=== PATIENT | male | born 1970 | race Caucasian/White ===

== ENCOUNTER 2023-08-04 11:22 | Inpatient (IN) | payer OTHER ==
[2023-08-04 12:23] VITALS: BMI 25.8
[2023-08-04] MEDS ORDERED: IBUPROFEN 400 MG TABLET (FP) PO PRN (13:22)
[2023-08-04] MEDS ORDERED: chlordiazePOXIDE HCL 25 MG CAPSULE PO PRN (13:22)
[2023-08-04] MEDS ORDERED: DICYCLOMINE HCL 10 MG CAPSULE PO PRN (13:22)
[2023-08-04] MEDS ORDERED: MAG HYDROX/AL HYDROX/SIMETH 30 ML UNIT-DOSE CUP PO PRN (13:22)
[2023-08-04] MEDS ORDERED: LOPERAMIDE HCL 2 MG CAPSULE PO PRN (13:22)
[2023-08-04] MEDS ORDERED: METHOCARBAMOL 500 MG TABLET PO PRN (13:22)
[2023-08-04] MEDS ORDERED: MAGNESIUM HYDROX 2400MG/30ML ORAL SUSPENSION 30 ML CUP PO PRN (13:22)
[2023-08-04] MEDS ORDERED: BENZONATATE 200 MG CAPSULE PO PRN (13:22)
[2023-08-04] MEDS ORDERED: NALOXONE HCL 0.4 MG/ML VIAL IM PRN (13:22)
[2023-08-04] MEDS ORDERED: IBUPROFEN 600 MG TABLET (FP) PO PRN (13:22)
[2023-08-04] MEDS ORDERED: POLYETHYLENE GLYCOL (HEALTHYLAX) 3350 17 GM PACKET PO PRN (13:22)
[2023-08-04] MEDS ORDERED: ONDANSETRON *ODT* 4 MG TABLET SL PRN (13:22)
[2023-08-04] MEDS ORDERED: NALOXONE (NARCAN) HCL 4 MG/0.1 ML SPRAY NS PRN (13:22)
[2023-08-04] MEDS ORDERED: BENZOCAINE/MENTHOL (CHLORASEPTIC ) LOZENGE MM PRN (13:22)
[2023-08-04] MEDS ORDERED: BISMUTH SUBSALICYLATE 262 MG/15 ML BTL PO PRN (13:22)
[2023-08-04] MEDS ORDERED: hydrOXYzine PAMOATE 25 MG CAPSULE (FP) PO PRN (13:22)
[2023-08-04] MEDS ORDERED: guaiFENesin 600 MG TABLET.ER (FP) PO PRN (13:22)
[2023-08-04] MEDS ORDERED: ACETAMINOPHEN 325 MG TABLET (FP) PO PRN (13:22)
[2023-08-04] MEDS: PRENATAL VITAMINS W/ FOLIC ACID TABLET (FP) PO SCH (14:52)
[2023-08-04] MEDS: NICOTINE 14 MG/24 HOURS TOPICAL PATCH TD SCH (15:00)
[2023-08-04] MEDS ORDERED: NICOTINE 14 MG/24 HOURS TOPICAL PATCH TD ONE (15:39)
[2023-08-04] MEDS: GABAPENTIN 400 MG CAPSULE PO SCH (15:45)
[2023-08-04] MEDS: chlordiazePOXIDE HCL 25 MG CAPSULE PO SCH (17:25)
[2023-08-04] MEDS: THIAMINE 100 MG TABLET PO SCH (22:08)
[2023-08-04] MEDS: MELATONIN 5 MG TABLETS PO SCH (22:08)
[2023-08-05] MEDS: PARoxetine HCL 20 MG TABLET PO SCH (10:13)
[2023-08-05 12:43] LABS: POTASSIUM 4.4 mmol/L (3.5-5.1)
[2023-08-05 12:44] LABS: CALCIUM 9.1 mg/dL (8.5-10.1)
[2023-08-05 12:46] LABS: ALBUMIN 3.3 g/dl (3.4-5.0); BLOOD UREA NITROGEN 14.8 mg/dL (7-18)
[2023-08-05 12:48] LABS: CREATININE 0.9 mg/dL (0.55-1.3)
[2023-08-05 12:50] LABS: BILIRUBIN,TOTAL 0.2 mg/dL (0.2-1); TOT PROT 6.6 g/dl (6.4-8.2)
[2023-08-05 12:56] LABS: HEMATOCRIT 43.1 % (35.4-49); HEMOGLOBIN 14.6 GM/dL (11.7-16.9); MCH 30.9 pg (25.7-33.7); MCHC 33.9 g/dl (32.0-35.9); MEAN CELL VOLUME 91.2 fl (80-96); PLATELET COUNT 271 10^3/uL (134-434); RBC 4.73 M/mm3 (4.00-5.60); RDW 14.1 % (11.9-15.9); WHITE BLOOD COUNT 5.6 K/mm3 (4.0-10.0)
[2023-08-06] MEDS: chlordiazePOXIDE HCL 25 MG CAPSULE PO SCH (05:25)
[2023-08-06 09:30] VITALS: BP 128/81; PULSE 57; RESP 18; TEMP 97.7
[2023-08-07] MEDS ORDERED: chlordiazePOXIDE HCL 10 MG CAPSULE PO PRN
[2023-08-07] MEDS ORDERED: chlordiazePOXIDE HCL 10 MG CAPSULE PO SCH (05:00)
[2023-08-08] MEDS ORDERED: chlordiazePOXIDE HCL 10 MG CAPSULE PO SCH (05:00)
[2023-08-09] MEDS ORDERED: chlordiazePOXIDE HCL 10 MG CAPSULE PO ONE (05:00)
== END 2023-08-06 10:24 | disposition home or self-care (01) | DRG 773 ==
LOC: YASAS 11:22 → Y6N 15:24
PROVIDERS: ADMIT Allergy & Immunology; ATTEND Surgery
PROC: HZ2ZZZZ Detoxification Services for Substance Abuse Treatment (ICD-10-PCS; principal; 2023-08-04)
DX: F11.23 Opioid dependence with withdrawal (principal); F10.230 Alcohol dependence with withdrawal, uncomplicated; F14.20 Cocaine dependence, uncomplicated; F17.210 Nicotine dependence, cigarettes, uncomplicated; F33.1 Major depressive disorder, recurrent, moderate; F10.282 Alcohol dependence with alcohol-induced sleep disorder; F41.9 Anxiety disorder, unspecified
CPT/HCPCS: 36415; 80053; 80305; 82140; 85027; 86780; 86803; 87522; 93005; 93010

== ENCOUNTER 2024-10-01 17:05 | Inpatient (IN) | payer OTHER ==
[2024-10-01 17:24] VITALS: BMI 23.5
[2024-10-01] MEDS ORDERED: LOPERAMIDE HCL 2 MG CAPSULE PO PRN (18:00)
[2024-10-01] MEDS ORDERED: NICOTINE POLACRILEX 2 MG GUM BUC PRN (18:00)
[2024-10-01] MEDS ORDERED: NALOXONE (NARCAN) HCL 4 MG/0.1 ML SPRAY NS PRN (18:00)
[2024-10-01] MEDS ORDERED: ONDANSETRON *ODT* 4 MG TABLET SL PRN (18:00)
[2024-10-01] MEDS ORDERED: IBUPROFEN 400 MG TABLET (FP) PO PRN (18:00)
[2024-10-01] MEDS ORDERED: POLYETHYLENE GLYCOL (HEALTHYLAX) 3350 17 GM PACKET PO PRN (18:00)
[2024-10-01] MEDS ORDERED: MAGNESIUM HYDROX 2400MG/30ML ORAL SUSPENSION 30 ML CUP PO PRN (18:00)
[2024-10-01] MEDS ORDERED: ACETAMINOPHEN 325 MG TABLET (FP) PO PRN (18:00)
[2024-10-01] MEDS ORDERED: DICYCLOMINE HCL 10 MG CAPSULE PO PRN (18:00)
[2024-10-01] MEDS ORDERED: BENZONATATE 200 MG CAPSULE PO PRN (18:00)
[2024-10-01] MEDS ORDERED: BISMUTH SUBSALICYLATE 524 MG/30 ML PO PRN (18:00)
[2024-10-01] MEDS ORDERED: MAG HYDROX/AL HYDROX/SIMETH 30 ML UNIT-DOSE CUP PO PRN (18:00)
[2024-10-01] MEDS ORDERED: BENZOCAINE/MENTHOL (CHLORASEPTIC ) LOZENGE MM PRN (18:00)
[2024-10-01] MEDS ORDERED: guaiFENesin 600 MG TABLET.ER (FP) PO PRN (18:00)
[2024-10-01] MEDS: MELATONIN 5 MG TABLETS PO SCH (23:07)
[2024-10-01] MEDS: THIAMINE 100 MG TABLET PO SCH (23:07)
[2024-10-01] MEDS: METHOCARBAMOL 500 MG TABLET PO PRN (23:12)
[2024-10-02 08:13] LABS: MCHC 33.2 g/dl (32.3-36.5); MEAN CELL VOLUME 91.8 fl (79.0-92.2); MEAN PLT VOLUME 10.1 fl (9.4-12.4); RDW 14.3 % (12.2-16.1)
[2024-10-02 08:21] LABS: GLUCOSE,RANDOM 123 mg/dL (74-106)
[2024-10-02 08:22] LABS: TOT PROT 6.5 g/dl (6.4-8.2)
[2024-10-02 08:23] LABS: CO2 28 mmol/L (21-32)
[2024-10-02 08:24] LABS: ALK PHOS 28 U/L (40-150)
[2024-10-02 08:27] LABS: CREATININE 0.70 mg/dL (0.55-1.3); SGOT/AST 20 U/L (5-34)
[2024-10-02 09:22] LABS: SGPT/ALT 11 U/L (0-55)
[2024-10-02] MEDS: PRENATAL VITAMINS W/ FOLIC ACID TABLET (FP) PO SCH (10:11)
[2024-10-02] MEDS: BUPRENORPHINE/NALOXONE 8 MG/2 MG FILM PACKET SL SCH (10:11)
[2024-10-02] MEDS: NICOTINE 21 MG/24 HOURS TOPICAL PATCH TD SCH (10:13)
[2024-10-02] MEDS: ESCITALOPRAM OXALATE 20 MG TABLET PO SCH (11:17)
[2024-10-02] MEDS: GABAPENTIN 400 MG CAPSULE PO SCH (14:38)
[2024-10-02] MEDS: hydrOXYzine PAMOATE 25 MG CAPSULE (FP) PO PRN (22:44)
[2024-10-03] MEDS: BUPRENORPHINE/NALOXONE 8 MG/2 MG FILM PACKET SL SCH (18:07)
[2024-10-03] MEDS: SUVOREXANT 10 MG TABLET PO PRN (22:22)
[2024-10-03] MEDS: IBUPROFEN 600 MG TABLET (FP) PO PRN (22:22)
[2024-10-04] MEDS: NICOTINE POLACRILEX 2 MG LOZENGE BC PRN (13:35)
[2024-10-06 09:21] VITALS: BP 102/60; PULSE 66; RESP 17; TEMP 98.4
== END 2024-10-06 12:45 | disposition other institution (70) | DRG 773 ==
LOC: YASAS 17:05 → Y3N 18:57
PROVIDERS: ADMIT Neuromusculoskeletal Medicine & OMM; ATTEND Allergy & Immunology
PROC: HZ2ZZZZ Detoxification Services for Substance Abuse Treatment (ICD-10-PCS; principal; 2024-10-01)
DX: F10.230 Alcohol dependence with withdrawal, uncomplicated (principal); F11.20 Opioid dependence, uncomplicated; F14.20 Cocaine dependence, uncomplicated; F12.20 Cannabis dependence, uncomplicated; F17.210 Nicotine dependence, cigarettes, uncomplicated; F33.1 Major depressive disorder, recurrent, moderate; F19.282 Other psychoactive substance dependence with psychoactive substance-induced sleep disorder; Z88.2 Allergy status to sulfonamides
CPT/HCPCS: 36415; 80053; 80307; 85027; 86780; 93005; 93010

== ENCOUNTER 2024-11-21 08:08 | Inpatient (IN) | payer OTHER ==
[2024-11-21 08:30] VITALS: BMI 25.1
[2024-11-21] MEDS ORDERED: NALOXONE (NARCAN) HCL 4 MG/0.1 ML SPRAY NS PRN (09:29)
[2024-11-21] MEDS ORDERED: POLYETHYLENE GLYCOL (HEALTHYLAX) 3350 17 GM PACKET PO PRN (09:29)
[2024-11-21] MEDS ORDERED: MAGNESIUM HYDROX 2400MG/30ML ORAL SUSPENSION 30 ML CUP PO PRN (09:29)
[2024-11-21] MEDS ORDERED: guaiFENesin 600 MG TABLET.ER (FP) PO PRN (09:29)
[2024-11-21] MEDS ORDERED: LOPERAMIDE HCL 2 MG CAPSULE PO PRN (09:29)
[2024-11-21] MEDS ORDERED: BISMUTH SUBSALICYLATE 524 MG/30 ML PO PRN (09:29)
[2024-11-21] MEDS ORDERED: BENZONATATE 200 MG CAPSULE PO PRN (09:29)
[2024-11-21] MEDS ORDERED: DICYCLOMINE HCL 10 MG CAPSULE PO PRN (09:29)
[2024-11-21] MEDS ORDERED: MAG HYDROX/AL HYDROX/SIMETH 30 ML UNIT-DOSE CUP PO PRN (09:29)
[2024-11-21] MEDS: levETIRAcetam 500 MG TABLET (FP) PO SCH (11:39)
[2024-11-21] MEDS: PRENATAL VITAMINS W/ FOLIC ACID TABLET (FP) PO SCH (12:28)
[2024-11-21] MEDS: NICOTINE 21 MG/24 HOURS TOPICAL PATCH TD SCH (12:28)
[2024-11-21] MEDS: GABAPENTIN 300 MG CAPSULE PO SCH (14:01)
[2024-11-21] MEDS: NICOTINE POLACRILEX 4 MG LOZENGE BC PRN (17:01)
[2024-11-21] MEDS: hydrOXYzine PAMOATE 25 MG CAPSULE (FP) PO PRN (20:18)
[2024-11-21] MEDS: IBUPROFEN 600 MG TABLET (FP) PO PRN (20:18)
[2024-11-21] MEDS: THIAMINE 100 MG TABLET PO SCH (22:22)
[2024-11-21] MEDS: MELATONIN 5 MG TABLETS PO SCH (22:26)
[2024-11-22] MEDS: METHOCARBAMOL 500 MG TABLET PO PRN (06:12)
[2024-11-22] MEDS: BUPRENORPHINE/NALOXONE 0.5 MG/0.125 MG FILM SL ONE (10:49)
[2024-11-22 11:40] LABS: MCHC 32.9 g/dl (32.3-36.5); MEAN CELL VOLUME 91.4 fl (79.0-92.2); MEAN PLT VOLUME 10.2 fl (9.4-12.4); RDW 13.7 % (12.2-16.1)
[2024-11-22 12:00] LABS: GLUCOSE,RANDOM 74.0 mg/dL (74-106); TOT PROT 8.3 g/dl (6.4-8.2)
[2024-11-22 12:01] LABS: CO2 27.0 mmol/L (21-32)
[2024-11-22 12:03] LABS: ALK PHOS 29.0 U/L (40-150)
[2024-11-22 12:05] LABS: SGOT/AST 22.0 U/L (5-34); SGPT/ALT 12.0 U/L (0-55)
[2024-11-22 12:06] LABS: CREATININE 0.77 mg/dL (0.55-1.3)
[2024-11-22] MEDS ORDERED: BUPRENORPHINE/NALOXONE 0.5 MG/0.125 MG FILM SL ONE (22:00)
[2024-11-23] MEDS: BENZOCAINE/MENTHOL (CHLORASEPTIC ) LOZENGE MM PRN (06:27)
[2024-11-23] MEDS ORDERED: BUPRENORPHINE/NALOXONE 0.5 MG/0.125 MG FILM SL SCH (10:00)
[2024-11-24] MEDS ORDERED: BUPRENORPHINE/NALOXONE 2 MG/0.5 MG FILM PACKET SL SCH (10:00)
[2024-11-24] MEDS: BACITRACIN 0.9 GM PACKET TP SCH (10:40)
[2024-11-24] MEDS: ACAMPROSATE CALCIUM 333 MG TABLET.DR PO SCH (13:54)
[2024-11-25] MEDS: ONDANSETRON *ODT* 4 MG TABLET SL PRN (07:19)
[2024-11-25] MEDS ORDERED: BUPRENORPHINE/NALOXONE 4 MG/1 MG FILM PACKET SL SCH (10:00)
[2024-11-26] MEDS: IBUPROFEN 400 MG TABLET (FP) PO PRN (02:42)
[2024-11-26] MEDS ORDERED: BUPRENORPHINE/NALOXONE 8 MG/2 MG FILM PACKET SL SCH (10:00)
[2024-11-26] MEDS: DOXYCYCLINE HYCLATE 100 MG TABLET PO SCH (10:51)
[2024-11-26] MEDS: ACETAMINOPHEN 325 MG TABLET (FP) PO PRN (15:48)
[2024-11-27] MEDS ORDERED: BUPRENORPHINE/NALOXONE 8 MG/2 MG FILM PACKET SL SCH (10:00)
[2024-11-27] MEDS: ESCITALOPRAM OXALATE 20 MG TABLET PO SCH (10:31)
[2024-11-27] MEDS ORDERED: ESCITALOPRAM OXALATE 10 MG TABLET ONE (10:36)
[2024-11-27] MEDS: ESCITALOPRAM OXALATE 20 MG TABLET PO ONE (10:36)
[2024-11-27 17:23] VITALS: RESP 17
[2024-11-28 09:41] VITALS: BP 100/71; PULSE 73; TEMP 96.9
[2024-11-28] MEDS: ESCITALOPRAM OXALATE 10 MG TABLET PO SCH (09:56)
[2024-11-28] MEDS ORDERED: NALTREXONE MICROSPHERES (VIVITROL) 380 MG DISP.SYRIN IM ONE (10:00)
== END 2024-11-28 10:53 | disposition home or self-care (01) | DRG 773 ==
LOC: SUATTDRO 08:08 → YASAS 08:08 → Y6N 11:11
PROVIDERS: ADMIT Family Medicine; ATTEND Counselor Addiction (Substance Use Disorder)
PROC: HZ2ZZZZ Detoxification Services for Substance Abuse Treatment (ICD-10-PCS; principal; 2024-11-21)
DX: F10.230 Alcohol dependence with withdrawal, uncomplicated (principal); F11.23 Opioid dependence with withdrawal; F41.8 Other specified anxiety disorders; F17.210 Nicotine dependence, cigarettes, uncomplicated; G62.9 Polyneuropathy, unspecified; G47.00 Insomnia, unspecified; G40.909 Epilepsy, unspecified, not intractable, without status epilepticus
CPT/HCPCS: 36415; 80053; 80305; 80307; 85027; 86780; 93005; 93010; Q0162

== ENCOUNTER 2024-12-03 19:17 | Inpatient (IN) | payer OTHER ==
[2024-12-03 20:04] VITALS: BMI 25.1
[2024-12-03] MEDS ORDERED: ACETAMINOPHEN 325 MG TABLET (FP) PO PRN (21:54)
[2024-12-03] MEDS ORDERED: IBUPROFEN 400 MG TABLET (FP) PO PRN (21:54)
[2024-12-03] MEDS ORDERED: MAG HYDROX/AL HYDROX/SIMETH 30 ML UNIT-DOSE CUP PO PRN (21:54)
[2024-12-03] MEDS ORDERED: ONDANSETRON *ODT* 4 MG TABLET SL PRN (21:54)
[2024-12-03] MEDS ORDERED: BENZONATATE 200 MG CAPSULE PO PRN (21:54)
[2024-12-03] MEDS ORDERED: BISMUTH SUBSALICYLATE 524 MG/30 ML PO PRN (21:54)
[2024-12-03] MEDS ORDERED: LOPERAMIDE HCL 2 MG CAPSULE PO PRN (21:54)
[2024-12-03] MEDS ORDERED: DICYCLOMINE HCL 10 MG CAPSULE PO PRN (21:54)
[2024-12-03] MEDS ORDERED: MAGNESIUM HYDROX 2400MG/30ML ORAL SUSPENSION 30 ML CUP PO PRN (21:54)
[2024-12-03] MEDS ORDERED: POLYETHYLENE GLYCOL (HEALTHYLAX) 3350 17 GM PACKET PO PRN (21:54)
[2024-12-03] MEDS ORDERED: NALOXONE (NARCAN) HCL 4 MG/0.1 ML SPRAY NS PRN (21:54)
[2024-12-03] MEDS ORDERED: guaiFENesin 600 MG TABLET.ER (FP) PO PRN (21:54)
[2024-12-03] MEDS ORDERED: MELATONIN 5 MG TABLETS ONE (22:43)
[2024-12-03] MEDS: MELATONIN 5 MG TABLETS PO SCH (22:45)
[2024-12-03] MEDS: THIAMINE 100 MG TABLET PO SCH (22:45)
[2024-12-03] MEDS: hydrOXYzine PAMOATE 25 MG CAPSULE (FP) PO PRN (23:01)
[2024-12-03] MEDS: METHOCARBAMOL 500 MG TABLET PO PRN (23:01)
[2024-12-04] MEDS: IBUPROFEN 600 MG TABLET (FP) PO PRN (05:48)
[2024-12-04 07:43] LABS: MCHC 33.7 g/dl (32.3-36.5); MEAN CELL VOLUME 88.2 fl (79.0-92.2); MEAN PLT VOLUME 9.3 fl (9.4-12.4); RDW 13.7 % (12.2-16.1)
[2024-12-04 07:52] LABS: GLUCOSE,RANDOM 130.0 mg/dL (74-106); TOT PROT 7.4 g/dl (6.4-8.2)
[2024-12-04 07:53] LABS: CO2 27.0 mmol/L (21-32)
[2024-12-04 07:55] LABS: ALK PHOS 32.0 U/L (40-150)
[2024-12-04 07:57] LABS: SGPT/ALT 122.0 U/L (0-55)
[2024-12-04 07:58] LABS: CREATININE 0.73 mg/dL (0.55-1.3); SGOT/AST 104.0 U/L (5-34)
[2024-12-04] MEDS: ESCITALOPRAM OXALATE 20 MG TABLET PO SCH (10:13)
[2024-12-04] MEDS: PRENATAL VITAMINS W/ FOLIC ACID TABLET (FP) PO SCH (10:13)
[2024-12-04] MEDS: NICOTINE 14 MG/24 HOURS TOPICAL PATCH TD SCH (10:13)
[2024-12-04] MEDS: GABAPENTIN 300 MG CAPSULE PO SCH (14:13)
[2024-12-04] MEDS: NICOTINE POLACRILEX 2 MG GUM BUC PRN (17:07)
[2024-12-04] MEDS: NICOTINE POLACRILEX 2 MG LOZENGE BC PRN (22:04)
[2024-12-05] MEDS: BENZOCAINE/MENTHOL (CHLORASEPTIC ) LOZENGE MM PRN (13:06)
[2024-12-06] MEDS: NICOTINE POLACRILEX 2 MG LOZENGE BC PRN (17:16)
[2024-12-09 06:14] VITALS: TEMP 97.7
[2024-12-09 08:46] VITALS: BP 130/70; PULSE 65; RESP 18
== END 2024-12-09 12:29 | disposition other institution (70) | DRG 773 ==
LOC: YASAS 19:17 → Y3N 22:21
PROVIDERS: ADMIT Neuromusculoskeletal Medicine & OMM; ATTEND Counselor Addiction (Substance Use Disorder)
PROC: HZ2ZZZZ Detoxification Services for Substance Abuse Treatment (ICD-10-PCS; principal; 2024-12-03)
DX: F10.230 Alcohol dependence with withdrawal, uncomplicated (principal); F11.20 Opioid dependence, uncomplicated; F14.20 Cocaine dependence, uncomplicated; F12.20 Cannabis dependence, uncomplicated; F17.210 Nicotine dependence, cigarettes, uncomplicated; F10.282 Alcohol dependence with alcohol-induced sleep disorder; F19.280 Other psychoactive substance dependence with psychoactive substance-induced anxiety disorder; F19.282 Other psychoactive substance dependence with psychoactive substance-induced sleep disorder; F19.24 Other psychoactive substance dependence with psychoactive substance-induced mood disorder; F33.1 Major depressive disorder, recurrent, moderate; F41.9 Anxiety disorder, unspecified; Z59.00 Homelessness unspecified; Z56.0 Unemployment, unspecified; Z88.0 Allergy status to penicillin
CPT/HCPCS: 36415; 80053; 80307; 85027; 86780; 87811; 93005; 93010